=== PATIENT | female | born 1995 | race Caucasian/White ===

== ENCOUNTER 2024-10-23 09:39 | Emergency (ER) | payer OTHER, SELFPAY ==
[2024-10-23 09:39] VITALS: BP 168/73; PULSE 109; RESP 16; TEMP 36.6; O2SAT 96
--- NOTE | 2024-10-23 09:50 | ED_ITS ---
HPI - URI/Sore Throat General Chief Complaint: Upper Respiratory Infection Stated Complaint: sore throat Time Seen by Provider: 10/23/24 09:44 Source: patient Mode of arrival: ambulatory Limitations: no limitations History of Present Illness HPI Narrative: patient is a 29-year-old female with a sore throat. She has exposure to strep. She is also concerned about COVID. MD elicited complaint: sore throat Pertinent past history: other ( Negative) Onset (ago): day(s) ( 2) Consistency: constant Severity: moderate Pain scale (0-10): 5 Description of mucous: clear Able to tolerate fluids by mouth: Yes Exacerbating factors: swallowing Relieving factors: nothing Context: sick contacts ( exposure to strep with her who was just treated and the kids have sore throats being seen today) Associated symptoms: denies other symptoms Treatments prior to arrival: none Related Data Allergies Allergy/AdvReac Type Severity Reaction Status Date / Time No Known Allergies Allergy Verified 10/23/24 09:48 Review of Systems Review of Systems: All systems reviewed & are unremarkable except as noted in HPI and below Constitutional: Constitutional: Reports no additional constitutional complaints Eyes: Eyes: Reports no additional eye complaints ENT: Reports system reviewed and no additional complaints, except as documented Cardiovascular: Cardiovascular: Reports no additional cardiovascular complaints Respiratory: Respiratory: Reports no additional respiratory complaints Gastrointestinal: Gastrointestinal: Reports no additional gastrointestinal complaints Genitourinary: Genitourinary: Reports no additional female genitourinary complaints Musculoskeletal: Musculoskeletal: Reports no additional musculoskeletal complaints Integumentary/Breasts: Skin/Breast: Reports system reviewed and no additional complaints, except as docu Neurologic: Reports system reviewed and no additional complaints, except as documented Psychiatric: Psychiatric: Reports no additional psychiatric complaints Endocrine: Endocrine: Reports no additional endocrine complaints Hematologic/Lymphatic: Hematologic/Lymphatic: Reports no additional hematologic/lymphatic complaints Allergic/Immunologic: Allergic/Immunologic: Reports no additional allergic/immunologic complaints Exam Const: General: healthy appearing Nutritional Appearance: well nourished Orientation/consciousness: patient oriented x3 HENMT: Head: normal to inspection Ears: external ears normal Face/Nose/Sinus: Normal external nose present Throat: posterior oropharynx abnormal Other: red oropharynx with tonsillar hypertrophy and slight pus Eyes: Conjunctivae: conjunctivae normal Pupils: Equal, round and reactive pupils present EOM: EOMs intact bilaterally Neck: Neck: normal visual inspection Chest: Chest palpation & inspection: normal inspection of the chest Resp: Effort & Inspection: normal respiratory effort and not labored Auscultation: clear to auscultation bilaterally and no crackles Cardio: Rate: regular rate Rhythm: regular rhythm Heart sounds: no murmurs GI: Inspection: non-distended GI Palp: Yes Soft to palpation and No Tenderness to palpation present (GI) Auscultation: normal bowel sounds : General: Yes bladder normal to palpation Skin: General skin exam: normal color Rashes: no rashes Wounds: no wounds Neuro: General: patient oriented x3, moves all extremities and no meningeal signs Extrem: General: normal to inspection Psych: Mental Status: mental status grossly normal Affect: normal affect Attitude: cooperative Course Vital Signs Vital signs: Vital Signs Temperature 36.6 C 10/23/24 09:39 Pulse Rate 109 H 10/23/24 09:39 Respiratory Rate 16 10/23/24 09:39 Blood Pressure 168/73 H 10/23/24 09:39 Pulse Oximetry 96 10/23/24 09:39 Oxygen Delivery Room Air 10/23/24 09:39 Temperature 36.9 C 10/23/24 11:07 Pulse Rate 96 10/23/24 11:07 Respiratory Rate 20 10/23/24 11:07 Blood Pressure 127/83 10/23/24 11:07 Pulse Oximetry 98 10/23/24 11:07 Oxygen Delivery Autopap 10/23/24 11:07 MDM - URI/Sore Throat MDM Narrative Medical decision making narrative: patient is a 29-year-old female with a sore throat. Check strep and COVID panel. Lab Data Attestation: I reviewed the patient's lab results. Labs: Lab Results 10/23/24 Range/Units 09:55 Influenza A (RT-PCR) Negative (Negative) Influenza B (RT-PCR) Negative (Negative) RSV (RT-PCR) Negative (Negative) SARS-CoV-2 RNA (RT-PCR) Negative (Negative) Group A Strep (PCR) Detected A (Negative) Discharge Plan Discharge Clinical Impression: Strep pharyngitis Patient Disposition: Home Condition: Stable Instructions: Antibiotic Form, Pharyngitis (ED) Patient Language: Greenlandic Prescriptions: New amoxicillin 500 mg capsule 500 mg PO BID 10 Days Qty: 20 0RF Follow-up/Referrals: Joyce Rodriguez MD [Primary Care Provider, [facility]] Time of Disposition: 11:00
--- NOTE | 2024-10-23 10:04 | PC.NURSE ---
Covid culture sent to lab
[2024-10-23 10:38] LABS: Influenza A QL RT-PCR Negative (Negative); Influenza B QL RT-PCR Negative (Negative); RSV RNA, RT-PCR Negative (Negative); SARS-CoV-2 RNA PCR Negative (Negative)
--- OUTSIDE RECORDS SUMMARY | 2024-10-23 10:46 | XMS_ITS | Clinical Summary ---
Author Organization [facility] Address [address] [place] [id number] Care Team Providers Care Postal Carrier Name Role Phone Joyce Rodriguez MD Primary Care Provider [phone] Allergies Active Allergy Reactions Criticality Noted Date Comments Seasonal Rash Low 08/11/2022 Medications multi vitamin/minerals (THERA-M ENHANCED) tablet Take 1 tablet by mouth daily. On hold for surgery. Active mirabegron ER (MYRBETRIQ) 50 MG 24 hr tablet Take 1 tablet (50 mg total) by mouth daily. 07/04/2024 Active Active Problems Problem Noted Date Diagnosed Date Post-op pain 03/02/2024 premature rupture of membranes (PPROM) with unknown onset of labor ([facility]) 02/28/2022 Encounter for elective induction of labor ([facility]) 04/23/2021 Vaginal delivery ([facility]) 08/16/2018 care following vaginal delivery ([facility] 08/16/2018 Normal labor ([facility]) 08/12/2018 Family History Medical History Relation Comments Diabetes Maternal Grandfather LIVER CANCER Maternal Grandfather Breast Cancer Maternal Grandmother Diabetes Maternal Grandmother Diabetes Mother Lupus Mother Thyroid Disease Mother HEART MURMUR Sister 1 Diabetes Sister 2 Relation Status Comments Father Maternal Grandfather Maternal Grandmother Mother Alive Sister 1 Sister 2 Social History Tobacco Use Types Packs/Day Years Used Date Smoking Tobacco: Never Smokeless Tobacco: Never Alcohol Use Standard Drinks/Week Comments No 0 (1 standard drink = 0.6 oz pur e alcohol) [facility] Utilities Answer Date Recorded In the past 12 months has e electric, gas, oil, or water company threatened to shut off services in your home? No 03/03/2024 Humiliation, Afraid, Rape, and Kick questionnair e Answer Date Recorded Within the last year, have y ou been afraid of your partner or ex-partner? No 03/03/2024 Within the last year, have y ou been humiliated or emotionally abused in other ways by your partner or ex-partner? No Within the last year, have y ou been kicked, hit, slapped, or otherwise physically hurt by your partner or ex-partner? No 03/03/2024 Within the last year, have y ou been raped or forced to have any kind of sexual activity by your partner or ex-partner? No 03/03/2024 Social Connection and Isolation Panel [NHANES] A nswer Date Recorded In a typical week, how many times do you talk on the phone with family, friends, or neighbors? Once a week 02/28/2022 How often do you get together with friends or re latives? Once a week 02/28/2022 How often do you attend gnosticism or yazidism serv ices? Never 02/28/2022 Do you belong to any clubs o r organizations such as gnosticism groups, unions, fraternal or athletic groups, or school groups? No 02/28/2022 How often do you attend meet ings of the clubs or organizations you belong to? Never 02/28/2022 Are you , , di vorced, , never , or living with a partner? 02/28/2022 AUDIT-C Answer Date Recorded Q1: How often do you have a drink containing alcohol? Never 02/28/2022 Q2: How many drinks containi ng alcohol do you have on a typical day when you are drinking? Patient does not drink Q3: How often do you have si x or more drinks on one occasion? Never 02/28/2022 Overall Financial Resource Strain (CARDIA) Answe r Date Recorded How hard is it for you to pa y for the very basics like food, housing, medical care, and heating? Not hard at all 03/03/2024 [facility] of Occupat ional Health - Occupational Stress Questionnaire Answer Date Recorded Do you feel stress - tense, restless, nervous, or anxious, or unable to sleep at night because your mind is troubled all the time - these days? Not at all 02/28/2022 Exercise Vital Sign Answer Date Recorde d On average, how many days pe r week do you engage in moderate to strenuous exercise (like a brisk walk)? 0 days 12/22/2021 On average, how many minutes do you engage in exercise at this level? 0 min 12/22/2021 Hunger Vital Sign Answer Date Recorded Within the past 12 months, y ou worried that your food would run out before you got the money to buy more. Never true 03/03/19 25 Within the past 12 months, t he food you bought just didn't last and you didn't have money to get more. Never true 03/03/2024 PRAPARE - Transportation Answer Date Re corded In the past 12 months, has l ack of transportation kept you from medical appointments or from getting medications? No 10/2024 In the past 12 months, has l ack of transportation kept you from meetings, work, or from getting things needed for daily living? No 03/03/2024 Housing Stability Vital Sign Answer Hollis e Recorded In the last 12 months, was t here a time when you were not able to pay the mortgage or rent on time? No 02/28/2022 In the last 12 months, how many places have you lived? 1 02/28/2022 In the last 12 months, was t here a time when you did not have a steady place to sleep or slept in a mcc (including now)? No 02/28/2022 Housing Stability Vital Sign Answer Hollis e Recorded In the last 12 months, was t here a time when you were not able to pay the mortgage or rent on time? No 03/03/2024 In the past 12 months, how m any times have you moved where you were living? 0 03/03/2024 At any time in the past 12 m [facility], were you homeless or living in a mcc (including now)? No 03/03/2024 Depression Answer Date Recor ded Last EPDS Total Score 1 04/23/2021 Last EPDS Self Harm Result Hardly ever 04/23 Comments No Sex and Gender Information Value Date Recorded Sex Assigned at Female 04/23/2021 6:19 AM TIN CUTTER Legal Sex Female 5:46 PM TIN CUTTER Gender Identity Female 04/23/2021 6:19 AM TIN CUTTER Sexual Orientation Straight 04/23/2021 6: 19 AM TIN CUTTER Last Filed Vital Signs Vital Sign Reading Time Taken Comments Blood Pressure 139/90 07/18/2024 2:32 PM CDT Pulse 102 07/18/2024 2:32 PM CDT Temperature 36.6 C (97.9 F) 07/18/2024 2:32 PM CDT Respiratory Rate 18 07/18/2024 2:32 PM CDT Oxygen Saturation 99% 07/18/2024 2:32 PM CDT Inhaled Oxygen Concentration - - Weight 96.3 kg (212 lb 4 oz) 07/18/2024 2:32 PM CDT Height 162.6 cm (5' 4) 07/18/2024 2:32 PM CDT Body Mass Index 36.43 07/18/2024 2:32 PM CDT Plan of Treatment Health Maintenance Due Date Last Done Comments Annual Physical 2000 DTaP, Tdap and Td Vaccines (7 - Td or Tdap) 06/17/2022 06/17/2012, 06/27/2003, 04/20/2001, Additional history exists COVID-19 Vaccine ( season) 2023 Hepatitis B Vaccines Completed 03/27/2000, 1997, 1997 HPV Vaccines Completed 07/29/2012, 04/2011, 12/11/2011 Meningococcal Vaccine Completed 09/26/2015, 012 Hepatitis C Completed 02/28/2022 Chlamydia Screening Females ages 16-24 Discontinued 09/11/2022, 02/28/2022, 01/09/2018 Meningococcal B Vaccine Aged Out No l onger eligible based on patient's age to complete this topic Pneumococcal Vaccine: Pediatrics (0 to 5 Years) and At-Risk Patients (6 to 49 Years) Aged Out No longer eligible based on patient's age to complete this topic RSV Immunizations Under 20 Months Aged Out No longer eligible based on patient's age to complete this topic Medical Devices Implanted Type Area Barrel Centerer Device Identifier Shelf Expiration Date Model / Serial / Lot Barrier Adhesion 6x5in Absorbable Control Beyond Closure Gynecare Interceed Pelvic Sterile - [id number] Implanted:Qty: 1 on 03/02/2024 by Diego Barrera Jr., DO at [facility] Barrier [employer] - A Do[employer] CO [id number] / / Description:Wrapper was disc arded - no other information available Procedures Procedure Name Priority Date/Time Associated Diagnosis Comments CHLAMYDIA GC RNA Routine 09/11/2022 4:34 PM CDT HEPATITIS C ANTIBODY Routine 02/28/2022 11:04 AM TIN CUTTER from Last 3 Months or Most Recently Relevant to Health Maintenance Results * CHLAMYDIA GC RNA (09/11/2022 4:34 PM CDT) SPECIMEN CERVIX 09/11/2022 4:34 PM CDT [facility] CHLAMYDIA RNA TMA NEGATIVE NEGATIVE 023 2:41 PM CDT [facility] Comment:PERFORMED BY NUCLEIC ACID AMPLIFICATION N.GONORRHOEAE RNA TMA NEGATIVE NEGATIVE 09/12/2022 2:41 PM CDT [facility] Comment:PERFORMED BY NUCLEIC ACID AMPLIFICATION CERVIX UTERI STRUCTURE / Unknown 09/11/2022 4:34 PM CDT Cherelle Alejandro MD MICROBIOLOGY - GENERAL ORDERA BLES Final Result [facility] [address] [place] [address], [facility] [address] [place] [address], [place] [phone] * HEPATITIS C ANTIBODY (02/28/2022 11:04 AM TIN CUTTER) HEPATITIS C AB NON-REACTI VE NON-REACT FREDI 02/28/2022 7:07 PM TIN CUTTER [facility] Comment: ANTIBODIES TO HCV NOT DETECTED. DOES NOT EXCLUDE THE POSSIBILITY OF EXPOSURE TO HCV. 02/28/2022 11:0 4 AM TIN CUTTER Cherelle Alejandro MD LABORATORY Final Result [facility] [address] [place] [address], [id number] from Last 3 Months or Most Recently Relevant to Health Maintenance Insurance [employer] Advance Directives * Full Code (Latest Code Status on File) Date Activated Date Inactivated Comments 03/02/2024 3:25 PM 03/03/2024 6:13 PM * Full Code Date Activated Date Inactivated Comments 03/24/2022 3:57 AM 03/25/2022 7:20 PM * Full Code Date Activated Date Inactivated Comments 04/23/2021 5:47 AM 04/24/2021 6:30 PM * Full Code Date Activated Date Inactivated Comments 10/07/2019 9:51 PM 10/09/2019 6:24 PM * Full Code Date Activated Date Inactivated Comments 08/11/2018 11:48 AM 08/11/2018 4:25 PM Care Teams Postal Carrier Relationship Specialty Start Date End Date Joyce Rodriguez MD [address] [place] [address] PCP - General FAMILY PRACTICE 06/22/20
--- OUTSIDE RECORDS SUMMARY | 2024-10-23 10:46 | XMS_ITS | Encounter Summary ---
Author Organization [facility] Address [address] [place] [address] Care Team Providers Care Supervisor Line Department Name Role Phone Joyce Rodriguez MD Primary Care Provider [phone] Encounter Details Date Type Department Care Team (Late st Contact Info) Description 11/10/2022 [facility] Documentation [facility] [address] [place] [place] [address] Joyce Rodriguez MD [address] [place] [address] Social History Tobacco Use Types Packs/Day Years Used Date Smoking Tobacco: Never Smokeless Tobacco: Never Alcohol Use Standard Drinks/Week Comments No 0 (1 standard drink = 0.6 oz pur e alcohol) Humiliation, Afraid, Rape, and Kick questionnair e Answer Date Recorded Within the last year, have y ou been afraid of your partner or ex-partner? No 02/28/2022 Within the last year, have y ou been humiliated or emotionally abused in other ways by your partner or ex-partner? No Within the last year, have y ou been kicked, hit, slapped, or otherwise physically hurt by your partner or ex-partner? No 02/28/2022 Within the last year, have y ou been raped or forced to have any kind of sexual activity by your partner or ex-partner? No 02/28/2022 Social Connection and Isolation Panel [NHANES] A nswer Date Recorded In a typical week, how many times do you talk on the phone with family, friends, or neighbors? Once a week 02/28/2022 How often do you get together with friends or re latives? Once a week 02/28/2022 How often do you attend rastafari or anglican serv ices? Never 02/28/2022 Do you belong to any clubs o r organizations such as rastafari groups, unions, fraternal or athletic groups, or [...] care, and heating? Not hard at all 02/28/2022 [facility] [place] of Occupat ional Health - Occupational Stress [...] the money to buy more. Never true 02/28/19 23 Within the past 12 months, t he food you bought just didn't last and you didn't have money to get more. Never true 02/28/2022 PRAPARE - Transportation Answer Date Re corded In the past 12 months, has l ack of transportation kept you from medical appointments or from getting medications? No 07/2022 In the past 12 months, has l ack of transportation kept you from meetings, work, or from getting things needed for daily living? No 02/28/2022 Housing Stability Vital Sign Answer [...] place to sleep or slept in a [place] [facility] [place] (including now)? No 02/28/2022 Depression Answer Date Recor ded Last EPDS Total Score 1 04/23/2021 Last EPDS Self Harm Result Hardly ever 04/23 Comments No Sex and Gender Information Value Date Recorded Sex Assigned at Female 04/23/2021 6:19 AM CLASSROOM ASSISTANT Legal Sex Female 5:46 PM CLASSROOM ASSISTANT Gender Identity Female 04/23/2021 6:19 AM CLASSROOM ASSISTANT Sexual Orientation Straight 04/23/2021 6: 19 AM CLASSROOM ASSISTANT documented as of this encounter Functional Status * RETIRED Are you deaf or do you have serious difficulty hearing Answer Date of Assessment Author Status No 02/28/2022 12:00 PM CLASSROOM ASSISTANT Acti ve * RETIRED Are you blind or do you have serious difficulty seeing, even when wearing glasses? Answer Date of Assessment Author Status No 02/28/2022 12:00 PM CLASSROOM ASSISTANT Acti ve * Do you have serious difficulty walking or climbing stairs? Answer Date of Assessment Author Status No 02/28/2022 12:00 PM CLASSROOM ASSISTANT Riley Taylor RN Active * Do you have difficulty dressing or bathing? Answer Date of Assessment Author Status No 02/28/2022 12:00 PM Riley Graff RN Active * Because of a physical, mental, or emotional condition, do you have difficulty doing errands alone such as visiting a doctor's office or shopping? Answer Date of Assessment Author Status No 02/28/2022 12:00 PM Riley Graff RN Active documented as of this encounter Mental Status * Because of a physical, mental, or emotional condition, do you have serious difficulty concentrating, remembering, or making decisions? Answer Entry Date Author Status No 02/28/2022 12:00 PM CLASSROOM ASSISTANT Riley Taylor RN Active documented in this encounter Plan of Treatment Not on file documented as of this encounter Visit Diagnoses Not on filedocumented in this encounter Additional Health Concerns Infection Onset Date Last Indicated Resolved Time COVID-19 Rule Out 07/29/2023 07/29/2023 07/29/2023 7:35 AM CDT documented as of this encounter Care Teams Supervisor Line Department Relationship Specialty Start Date End Date Joyce Rodriguez MD [address] [place] [address] PCP - General FAMILY PRACTICE 06/22/20 documented as of this encounter
--- OUTSIDE RECORDS SUMMARY | 2024-10-23 10:46 | XMS_ITS | Encounter Summary ---
Author Organization [facility] Address [address] [place] [id number] Care Team Providers Care Supervisor Assembly Name Role Phone Joyce Rodriguez MD Primary Care Provider [phone] Encounter Details Date Type Department Care Team ([facility] Contact Info) Description 12/12/2021 Community Orders [facility] EPICCARE LINK Joyce Rodriguez MD [address] [place] [address] Social History Tobacco Use Types Packs/Day Years Used Date Smoking Tobacco: Never Smokeless Tobacco: Never Alcohol Use Standard Drinks/Week Comments No 0 (1 standard drink = 0.6 oz pur e alcohol) Humiliation, Afraid, Rape, and Kick questionnair e Answer Date Recorded Within the last year, have y ou been afraid of your partner or ex-partner? No 04/23/2021 Within the last year, have y ou been humiliated or emotionally abused in other ways by your partner or ex-partner? No Within the last year, have y ou been kicked, hit, slapped, or otherwise physically hurt by your partner or ex-partner? No 04/23/2021 Within the last year, have y ou been raped or forced to have any kind of sexual activity by your partner or ex-partner? No 04/23/2021 Social Connection and Isolation Panel [NHANES] A nswer Date Recorded In a typical week, how many times do you talk on the phone with family, friends, or neighbors? Once a week 04/23/2021 How often do you get together with friends or re latives? Once a week 04/23/2021 How often do you attend judaism or episcopal serv ices? Never 04/23/2021 Do you belong to any clubs o r organizations such as judaism groups, unions, fraternal or athletic groups, or school groups? No 04/23/2021 How often do you attend meet ings of the clubs or organizations you belong to? Never 04/23/2021 Are you , , di vorced, , never , or living with a partner? 04/23/2021 AUDIT-C Answer Date Recorded Q1: How often do you have a drink containing alc ohol? Never 04/23/2021 Q2: How many drinks containi ng alcohol do you have on a typical day when you are drinking? Patient declined 04/23/2021 Q3: How often do you have si x or more drinks on one occasion? Never 04/23/2021 Overall Financial Resource Strain (CARDIA) Answe r Date Recorded How hard is it for you to pa y for the very basics like food, housing, medical care, and heating? Not hard at all 04/23/2021 [facility] - Occupational Stress Questionnaire Answer Date Recorded Do you feel stress - tense, restless, nervous, or anxious, or unable to sleep at night because your mind is troubled all the time - these days? Only a little 04/23/2021 Exercise Vital Sign Answer Date Recorde d On average, how many days pe r week do you engage in moderate to strenuous exercise (like a brisk walk)? 2 days 04/23/2021 On average, how many minutes do you engage in exercise at this level? 30 min 04/23/2021 Hunger Vital Sign Answer Date Recorded Within the past 12 months, y ou worried that your food would run out before you got the money to buy more. Never true 04/24/19 22 Within the past 12 months, t he food you bought just didn't last and you didn't have money to get more. Never true 04/23/2021 PRAPARE - Transportation Answer Date Re corded In the past 12 months, has l ack of transportation kept you from medical appointments or from getting medications? No 02/2021 In the past 12 months, has l ack of transportation kept you from meetings, work, or from getting things needed for daily living? No 04/23/2021 Housing Stability Vital Sign Answer Hollis e Recorded In the last 12 months, was t here a time when you were not able to pay the mortgage or rent on time? No 04/23/2021 In the last 12 months, how many places have you lived? 1 04/23/2021 In the last 12 months, was t here a time when you did not have a steady place to sleep or slept in a fpc (including now)? No 04/23/2021 Depression Answer Date Recor ded Last EPDS Total Score 1 04/23/2021 Last EPDS Self Harm Result Hardly ever 04/23 Comments Yes Sex and Gender Information Value Date Recorded Sex Assigned at Female 04/23/2021 6:19 AM RESIDENTIAL AIDE Legal Sex Female 5:46 PM RESIDENTIAL AIDE Gender Identity Female 04/23/2021 6:19 AM RESIDENTIAL AIDE Sexual Orientation Straight 04/23/2021 6: 19 AM RESIDENTIAL AIDE COVID-19 Exposure Response Date Recorded In the last 10 days, have yo u been in contact with someone who was confirmed or suspected to have Coronavirus/COVID-19? No / Unsure 12/11/2021 7:03 PM CDT documented as of this encounter Functional Status * RETIRED Are you deaf or do you have serious difficulty hearing Answer Date of Assessment Author Status No 04/23/2021 6:25 AM RESIDENTIAL AIDE Activ e * RETIRED Are you blind or do you have serious difficulty seeing, even when wearing glasses? Answer Date of Assessment Author Status No 04/23/2021 6:25 AM RESIDENTIAL AIDE Activ e * Do you have serious difficulty walking or climbing stairs? Answer Date of Assessment Author Status No 04/23/2021 6:25 AM Christina Nicole, RN Active * Do you have difficulty dressing or bathing? Answer Date of Assessment Author Status No 04/23/2021 6:25 AM Christina Nicole, RN Active * Because of a physical, mental, or emotional condition, do you have difficulty doing errands alone such as visiting a doctor's office or shopping? Answer Date of Assessment Author Status No 04/23/2021 6:25 AM Christina Nicole, RN Active documented as of this encounter Mental Status * Because of a physical, mental, or emotional condition, do you have serious difficulty concentrating, remembering, or making decisions? Answer Entry Date Author Status No 04/23/2021 6:25 AM RESIDENTIAL AIDE Christina Andrade RN Active documented in this encounter Plan of Treatment Not on file documented as of this encounter Visit Diagnoses Not on filedocumented in this encounter Additional Health Concerns Infection Onset Date Last Indicated Resolved Time COVID-19 Rule Out 01/18/2022 01/18/2022 01/18/2022 3:48 PM RESIDENTIAL AIDE Influenza - Seasonal 01/18/2022 01/18/2022 023 7:55 AM RESIDENTIAL AIDE COVID-19 Rule Out 07/29/2023 07/29/2023 07/29/2023 7:35 AM CDT documented as of this encounter Care Teams Supervisor Assembly Relationship Specialty Start Date End Date Joyce Rodriguez MD [address] [place] [address] PCP - General FAMILY PRACTICE 06/22/20 documented as of this encounter
--- OUTSIDE RECORDS SUMMARY | 2024-10-23 10:46 | XMS_ITS | Encounter Summary ---
Author Organization [facility] Address [address] [place] [address] Care Team Providers Care Senior Java Software Engineer Name Role Phone Chino De Anda MD Primary Care Provider [phone] Bob Kay MD Primary Care Provider [phone] oJyce Rodriguez MD Primary Care Provider [phone] Encounter Details Date Type Department Care Team (Late st Contact Info) Description 07/31/2018 Abstract [facility] CONVERSION [address] [place] [address] , Generic Conversion, Social History Tobacco Use Types Packs/Day Years Used Date Smoking Tobacco: Never Assessed AUDIT-C Answer Date Recorded Frequency of Alcohol Consumption Never 08/04/2018 Average Number of Drinks Not on file 019 Frequency of Binge Drinking Not on file 07/24 Comments Unknown Sex and Gender Information Value Date Recorded Sex Assigned at Female 04/23/2021 6:19 AM MANAGER CAMP Legal Sex Female 5:46 PM MANAGER CAMP Gender Identity Female 04/23/2021 6:19 AM MANAGER CAMP Sexual Orientation Straight 04/23/2021 6: 19 AM MANAGER CAMP documented as of this encounter Plan of Treatment Not on file documented as of this encounter Visit Diagnoses Not on filedocumented in this encounter Additional Health Concerns Infection Onset Date Last Indicated Resolved Time COVID-19 Rule Out 08/19/2019 08/19/2019 08/19/2019 7:39 PM CDT COVID-19 Rule Out 10/03/2019 10/03/2019 10/04/2019 10:38 PM CDT COVID-19 Rule Out 02/27/2021 02/27/2021 02/27/2021 6:58 PM MANAGER CAMP COVID-19 Rule Out 03/15/2021 03/15/2021 03/15/2021 8:48 AM MANAGER CAMP COVID-19 Rule Out 03/15/2021 03/15/2021 03/15/2021 8:21 PM MANAGER CAMP COVID-19 Confirmed 03/15/2021 03/15/2021 12:33 AM MANAGER CAMP COVID-19 Rule Out 04/09/2021 04/09/2021 04/09/2021 8:46 PM MANAGER CAMP COVID-19 Rule Out 04/23/2021 04/23/2021 04/23/2021 6:29 AM MANAGER CAMP COVID-19 Rule Out 01/18/2022 01/18/2022 01/18/2022 3:48 PM MANAGER CAMP Influenza - Seasonal 01/18/2022 01/18/2022 023 7:55 AM MANAGER CAMP COVID-19 Rule Out 07/29/2023 07/29/2023 07/29/2023 7:35 AM CDT documented as of this encounter Care Teams Senior Java Software Engineer Relationship Specialty Start Date End Date Chino De Anda MD [address] [place] [id number] PCP - General FAMILY PRACTICE 08/11/18 08/20/18 Bob Kay MD [address] [place] [phone] PCP - General FAMILY PRACTICE 08/21/18 06/21/20 Joyce Rodriguez MD [address] [place] [id number] PCP - General FAMILY PRACTICE 06/22/20 documented as of this encounter
[2024-10-23 10:52] LABS: Strep Group A RT-PCR DETECTED (Negative)
[2024-10-23 11:07] VITALS: BP 127/83; PULSE 96; RESP 20; TEMP 36.9; O2SAT 98
== END 2024-10-23 11:09 | disposition home or self-care (01) ==
PROVIDERS: Emergency Provider Emergency Medicine; PCP Family Medicine
DX: J02.0 Streptococcal pharyngitis (principal); Z20.822 Contact with and (suspected) exposure to COVID-19
CPT/HCPCS: 87637; 87651; 99283